=== PATIENT | male | born 1980 | race Caucasian/White ===

== ENCOUNTER 2019-02-21 12:30 | Observation (INO) ==
[2019-02-21 12:39] VITALS: BMI 34.2
--- NOTE | 2019-02-21 13:08 | DR.CP ---
HPI Time Seen Time Seen by Provider: 02/21/19 13:08 PCP Primary Care Physician: RADHA HPI Comment HPI Comment: 38 yo CM w/ prev hx of remote IVDA presents w/ 3 month hx of CP, worse over the past 2-3 days. Sternal area, pressure like, radiating to bilate ral axilla, constant, worse w/ supine body position, no relieving factors, a/w diaphoresis. Denies SOB, LE edema/ swelling, n/v, palpitations, syncope, cough, f/c. Seen at [facility] ED in [place] for similar pain and DC'd home from ED. Was reportedly told he had "fluid on his heart" at that time but no intervention performed and has not followed up with primary care provider. Takes 81 mg ASA QD . Took his dose this am. 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 PT STATES THAT THE PAIN INTERMITTENTLY RADIATES INTO LEFT ARM. PAIN IS WORSE WITH EXERTION. PT STATES "I FEEL LIKE IT'S SO HEAVY ON MY CHEST THAT I FEEL LIKE I CAN'T GET A DEEP BREATH IN. " Self Treatment fo Chief Complaint: TOOK ASPIRIN 81MG PO X 1 Source History Provided: Patient and Significant Other Mode of Arrival Mode of Arrival: Ambulatory Timing Onset of Chief Complaint: 02/21/19 Came on: Gradually Pain: Present Now Location Location of Chest Pain: Chest Context Onset: At rest Cardiac Risk Factors: Smoker and Family History; denies Cocaine PE Risk Factors: denies Recent Trauma/Surgery, Estrogen Use, BCP's and Immobilization History of: Similar pain in the past Prehospital Care: None Quality Quality: Pressure like Severity Severity: Moderate Associated Signs and Symptoms Associated Signs and Symptoms: Diaphoresis; denies Shortness of Breath, Palpitations, Abdominal Pain, Nausea/Vomiting, Calf Pain/Swelling and Chest Rash PMH PMH Past Medical History: Yes Past Medical History: Hypertension Past Surgical History: Yes Surgical History: Appendectomy Family History History of Family Medical Conditions: Yes Family Medical History: Cancer, Coronary Artery Disease and Hypertension Social History Does patient currently use any type of tobacco product: Yes Have you used tobacco products in the last 12 months: Yes Type of Tobacco Use: Cigarettes Does any household member use tobacco: Yes Alcohol Use: Occasionally Do you use any recreational Drugs:: No Lives With: Family Lives Where: Home infectious screening In the last 2 months have you had wt loss of >10#?: NO Have you had fever, night sweats or hemotysis?: No Have you traveled outside the country in the last 6 months?: No Isolation: Standard ROS Review of Systems Constitutional: No Symptoms Reported Eyes: No Symptoms Reported ENTM: No Symptoms Reported Respiratoy: No Symptoms Reported and See HPI Cardiovascular: See HPI and Chest Pain; negative Edema, Syncope and Cyanosis Gastrointestinal/Abdominal: No Symptoms Reported Genitourinary: No Symptoms Reported Neurological: No Symptoms Reported Musculoskeletal: No Symptoms Reported Integumentary: No Symptoms Reported Hematologic/Lymphatic: No Symptoms Reported Endocrine: No Symptoms Reported Psychiatric: No Symptoms Reported All Other Systems: Reviewed and Negative PE Vitals Vitals: Temperature 97.9 F Pulse Rate [Apical] 70 Pulse Rate 61 Respiratory Rate 20 Blood Pressure [Right Arm] 173/98 Blood Pressure 172/92 O2 Sat by Pulse Oximetry 99 General Limitations: No Limitations General Appearance: Alert and In No Apparent Distress Head Head Exam: Normal Inspection Eyes Eye exam: Normal Appearance ENT ENT Exam: Normal Exam Chest Chest Inspection: Normal Inspection Respiratory Respiratory Exam: Normal Lung Sounds Bilat Cardiovascular Cardiovascular Exam: Regular Rate and Normal Rhythm Pulse: Normal Edema: Normal Abdominal Exam Abdominal Exam: Normal Inspection, Normal Bowel Sounds and Soft Extremities Extremities Exam: Normal Inspection Back Back Exam: Normal Inspection Neurologic Neurological Exam: Alert and Oriented X3 Psychiatric Psychiatric Exam: Normal Affect and Normal Mood Skin Skin Exam: Warm, Dry, Intact and Normal Color MDM Additional Information Additional Information Obtained From: Old Records and Family Differential Diagnosis Differential Diagnosis: Angina, Aortic Dissection, Chest Wall Pain, Costochondritis, Myocardial Infarction, Pericarditis and Pulmonary Embolus COURSE Treatment Treatment: 38 yo CM w/ pmh of remote [facility] presents for CP x 3 months, worse over the past few days. Hemodynamically stable on arrival to ED. EKG w/ evidence of early repol but otherwise isoelectric ST. ASA loaded. CXR essentially normal other than some cmg. TNI/ ckmb negative. Mild leukocytosis noted. ESR/ CRP negative. Suspect elevated wbc secondary to demargination. No evidence of pericarditis at this time. Chest pain improved after morphine and nitro x 1. Given his significant family hx of CAD and this being his second presentation to an ED for this CP, will opt to admit for CP r/o acs. Consultation Consultation Comments: Discussed all details of case with Dr Holland whom agreed to admit. Education/Counseling Education/Counseling: Patient and Family Educated On: Treatment and Diagnosis ROR Labs Reviewed Laboratory Results Reviewed?: Yes Result Diagrams: 02/21/19 13:47 02/21/19 13:47 Laboratory: WBC 15.0 X10^3/uL (3.6-10.0) H 02/21/19 13:47 RBC 5.52 X10^6/uL (4.7-6.0) 02/21/19 13:47 Hgb 16.7 g/dL (13.5-18.0) 02/21/19 13:47 Hct 47.6 % (42.0-54.0) 02/21/19 13:47 MCV 86.3 fL (80.0-100.0) 02/21/19 13:47 MCH 30.3 pg (27.0-34.0) 02/21/19 13:47 MCHC 35.0 g/dL (33.0-35.0) 02/21/19 13:47 RDW 13.8 % (11.6-16.5) 02/21/19 13:47 Plt Count 252 X10^3/uL (150.0-450.0) 02/21/19 13:47 MPV 7.8 fL (7.4-11.0) 02/21/19 13:47 Neut % (Auto) 75.6 % (42.0-75.0) H 02/21/19 13:47 Lymph % (Auto) 17.5 % (21.0-51.0) L 02/21/19 13:47 [place] % (Auto) 5.8 % (0.0-13.0) 02/21/19 13:47 Eos % (Auto) 0.5 % (0.9-2.9) L 02/21/19 13:47 Baso % (Auto) 0.6 % (0.2-1.0) 02/21/19 13:47 Neut # (Auto) 11.4 x10^3/uL (2.2-4.8) H 02/21/19 13:47 Lymph # (Auto) 2.6 X10^3/uL (1.3-2.9) 02/21/19 13:47 [place] # (Auto) 0.9 x10^3/uL (0.3-0.8) H 02/21/19 13:47 Eos # (Auto) 0.1 x10^3/uL (0.0-0.2) 02/21/19 13:47 Baso # (Auto) 0.1 X10^3/uL (0.0-0.1) 02/21/19 13:47 Absolute Nucleated RBC 0.0 /100WBC 02/21/19 13:47 ESR 2 MM/HOUR (0-15) 02/21/19 13:47 INR Target Range - 02/21/19 13:47 INR 0.99 (0.8-1.3) 02/21/19 13:47 APTT 28.6 SECONDS (22.9-36.5) 02/21/19 13:47 PTT Comment - 02/21/19 13:47 Sodium 141 mmol/L (136-145) 02/21/19 13:47 Corrected Sodium TNP 02/21/19 13:47 Potassium 4.3 mmol/L (3.5-5.1) 02/21/19 13:47 Chloride 104 mmol/L (98-107) 02/21/19 13:47 Carbon Dioxide 24.2 mmol/L (21-32) 02/21/19 13:47 BUN 9 mg/dL (7-18) 02/21/19 13:47 Creatinine 0.98 mg/dL (0.70-1.30) 02/21/19 13:47 Est GFR (MDRD) Af Amer > 60 (>60) 02/21/19 13:47 Est GFR (MDRD) Non-Af > 60 (>60) 02/21/19 13:47 Glucose 84 mg/dL (65-99) 02/21/19 13:47 Calcium 8.8 mg/dL (8.5-10.1) 02/21/19 13:47 Corrected Calcium TNP 02/21/19 13:47 Total Bilirubin 0.20 mg/dL (0.2-1.0) 02/21/19 13:47 AST 30 Units/L (15-37) 02/21/19 13:47 ALT 62 Units/L (12-78) 02/21/19 13:47 Alkaline Phosphatase 54 Units/L (46-116) 02/21/19 13:47 Creatine Kinase 270 Units/L (39-308) 02/21/19 18:32 CK-MB (CK-2) 1.7 ng/mL (0-4.0) 02/21/19 18:32 CK/CKMB % Calc 0.6 % (<4) 02/21/19 18:32 Troponin I < 0.02 ng/mL (0-1.5) 02/21/19 18:32 C-Reactive Protein 2.00 mg/L (0-3.0) 02/21/19 13:47 Total Protein 8.4 g/dL (6.4-8.2) H 02/21/19 13:47 Albumin 4.5 g/dL (3.4-5.0) 02/21/19 13:47 Globulin 3.9 g/dL (2.5-4.5) 02/21/19 13:47 Albumin/Globulin Ratio 1.2 Ratio (1.1-2.1) 02/21/19 13:47 XRAY XRAY Interpreted by: Both XRAY Findings: cmg, peribronchial thickenin, no pleural effusion, mild pvc EKG Rate: 78 [place]: Normal Rhythm: NSR Hypertrophy: None ST: Normal (early repolarization ) Opioid Opioid Risk Tool Total: 0 Total Score Risk Category: Low Risk Copyright: Florian KNOWLES predicting aberrant behaviors Diagnosis Discharge Problem: Chest pain
--- NOTE | 2019-02-21 13:53 | RAD ---
HISTORY: Chest pain Study: Single-view chest Comparison: No priors Findings: Trachea is midline. Heart size is upper normal with pulmonary vascular congestion. There are increased interstitial markings bilaterally which have the appearance of mild bronchitis/interstitial pneumonitis. No CHF, consolidation, pleural fluid or pneumothorax is seen. Osseous structures are intact. IMPRESSION: Bilateral increased interstitial markings. These findings may represent bronchitis or interstitial pneumonitis. No CHF or consolidation is seen. Upper normal heart size with very mild pulmonary vascular congestion. Reported By:
[2019-02-21 14:01] LABS: BASOPHILS # (AUTO) 0.1 X10^3/uL (0.0-0.1); BASOPHILS % (AUTO) 0.6 % (0.2-1.0); EOSINOPHILS # (AUTO) 0.1 x10^3/uL (0.0-0.2); EOSINOPHILS % (AUTO) 0.5 % (0.9-2.9); HEMATOCRIT 47.6 % (42.0-54.0); HEMOGLOBIN 16.7 g/dL (13.5-18.0); LYMPHOCYTES # (AUTO) 2.6 X10^3/uL (1.3-2.9); LYMPHOCYTES % (AUTO) 17.5 % (21.0-51.0); MEAN CORPUSCULAR HEMOGLOBIN 30.3 pg (27.0-34.0); MEAN CORPUSCULAR VOLUME 86.3 fL (80.0-100.0); MEAN PLATELET VOLUME 7.8 fL (7.4-11.0); MONOCYTES # (AUTO) 0.9 x10^3/uL (0.3-0.8); MONOCYTES % (AUTO) 5.8 % (0.0-13.0); NEUTROPHILS # (AUTO) 11.4 x10^3/uL (2.2-4.8); NEUTROPHILS % (AUTO) 75.6 % (42.0-75.0); PLATELET COUNT 252 X10^3/uL (150.0-450.0); RED BLOOD COUNT 5.52 X10^6/uL (4.7-6.0); RED CELL DISTRIBUTION WIDTH 13.8 % (11.6-16.5)
[2019-02-21] MEDS ORDERED: ASPIRIN PO ONE (14:14)
[2019-02-21] MEDS ORDERED: MORPHINE SULFATE INJ 2 MG INJ IVP ONE (14:15)
[2019-02-21] MEDS ORDERED: ZOFRAN INJ 4 MG VIAL IVP ONE (14:15)
[2019-02-21 14:18] LABS: BLOOD UREA NITROGEN 9 mg/dL (7-18); CALCIUM 8.8 mg/dL (8.5-10.1); CARBON DIOXIDE 24.2 mmol/L (21-32); CHLORIDE 104 mmol/L (98-107); CREATININE 0.98 mg/dL (0.70-1.30); SODIUM 141 mmol/L (136-145); TROPONIN I < 0.02 ng/mL (0-1.5); eGFR NON BLACK RACES > 60 (>60)
[2019-02-21] MEDS ORDERED: ASPIRIN ONE (14:21)
[2019-02-21] MEDS ORDERED: ZOFRAN INJ 4 MG VIAL ONE (14:21)
[2019-02-21] MEDS ORDERED: MORPHINE SULFATE INJ 2 MG INJ ONE (14:22)
[2019-02-21 14:23] LABS: ALANINE AMINOTRANSFERASE 62 Units/L (12-78); ALBUMIN 4.5 g/dL (3.4-5.0); ALKALINE PHOSPHATASE 54 Units/L (46-116); ASPARTATE AMINO TRANSFERASE 30 Units/L (15-37); CKMB % 0.6 % (<4); CREATINE KINASE 291 Units/L (39-308); CREATINE KINASE MB 1.8 ng/mL (0-4.0); TOTAL PROTEIN 8.4 g/dL (6.4-8.2)
[2019-02-21] MEDS ORDERED: NITROSTAT SL ONE (15:14)
[2019-02-21 19:11] LABS: CKMB % 0.6 % (<4); CREATINE KINASE 270 Units/L (39-308); CREATINE KINASE MB 1.7 ng/mL (0-4.0); TROPONIN I < 0.02 ng/mL (0-1.5)
[2019-02-21] MEDS ORDERED: NICOTINE PATCH ONE (19:39)
[2019-02-21] MEDS: NICOTINE PATCH TD SCH (20:00)
[2019-02-21] MEDS ORDERED: LOVENOX INJ 40 MG SYR SC SCH (21:00)
[2019-02-21] MEDS: PEPCID TAB 20 MG PO SCH (21:58)
[2019-02-22 00:28] LABS: CKMB % 0.5 % (<4); CREATINE KINASE 292 Units/L (39-308); CREATINE KINASE MB 1.5 ng/mL (0-4.0); TROPONIN I < 0.02 ng/mL (0-1.5)
[2019-02-22 07:18] LABS: CHOL/HDL RATIO 7.5 (0.0-5.0)
[2019-02-22 07:20] LABS: CKMB % 0.5 % (<4); CREATINE KINASE 279 Units/L (39-308); CREATINE KINASE MB 1.5 ng/mL (0-4.0); TROPONIN I < 0.02 ng/mL (0-1.5)
[2019-02-22] MEDS: PEPCID TAB 20 MG PO SCH (08:45)
[2019-02-22] MEDS: NICOTINE PATCH TD SCH (08:46)
[2019-02-22] MEDS ORDERED: ASPIRIN PO SCH (09:00)
[2019-02-22] MEDS: NITROSTAT SL PRN ×2 (10:26→10:42)
[2019-02-22 12:30] VITALS: BP 161/79
== END 2019-02-22 12:25 | disposition home or self-care (01) ==
LOC: ER 12:30 → MED/SURG 12:30
PROVIDERS: ADMIT Obstetrics & Gynecology Obstetrics; ATTEND Obstetrics & Gynecology Obstetrics
DX: R07.89 Other chest pain; M94.0 Chondrocostal junction syndrome [Tietze]; J30.9 Allergic rhinitis, unspecified
CPT/HCPCS: 36415; 71010; 71045; 80053; 80061; 82550; 82553; 84484; 85025; 85610; 85652; 85730; 86140; 93005; 94760; 96365; 96374; 96375; 99284; A4216; A4222; G0378; J1650; J2270; J2405